=== PATIENT | female | born 1950 | race Two or more races ===

== ENCOUNTER 2020-10-25 13:21 | Outpatient (CLI) | payer OTHER | END 2020-10-25 13:33 | disposition home or self-care (01) | LOC: RAD 13:21 | DX: M20.11 Hallux valgus (acquired), right foot (principal) ==

== ENCOUNTER 2023-10-13 14:01 | Emergency (ER) | payer OTHER ==
[~2023-10-13] VITALS: Ht 165.1 cm; Wt 63.5 kg
[2023-10-13] MEDS ORDERED: LEVOTHYROXINE75 MCG (14:12)
[2023-10-13] MEDS ORDERED: PREDNISONE5 M1 (14:12)
[2023-10-13] MEDS ORDERED: ELIQUIS5 MG (14:13)
[2023-10-13] MEDS ORDERED: XANAX XR0.5 MG (14:13)
[2023-10-13] MEDS ORDERED: TOPROL XL25 M1 (14:13)
[2023-10-13] MEDS ORDERED: PROZAC40 MG (14:13)
[2023-10-13] MEDS ORDERED: LIPITOR20 MG (14:13)
[2023-10-13] MEDS ORDERED: LACTOBACILLUS ACIDOPHILUS 1 CAP CAP PO ONE ×2 (15:15→15:22)
[2023-10-13] MEDS ORDERED: 0.9 % SODIUM CHLORIDE 500 ML IV ONE (15:15)
[2023-10-13 15:35] LABS: HEMATOCRIT 41.4 % (36.0-45.00); HEMOGLOBIN 14.2 g/dL (12.0-15.00); MEAN CELL VOLUME 93.5 fL (80.00-100.00); MEAN CORPUSCULAR HEMOGLOBIN 32.1 pg (27.00-32.0); MEAN CORPUSCULAR HGB CONC 34.3 g/dl (32.0-36.0); PLATELET COUNT 281 K/uL (150-450); RED BLOOD COUNT 4.43 M/uL (4.00-6.00)
[2023-10-13 16:10] LABS: ALBUMIN 3.6 gm/dL (3.4-5.0); BILIRUBIN TOTAL 0.44 mg/dL (0.3-1.2); CALCIUM 8.8 mg/dL (8.5-10.1); CREATININE SERUM 1.02 mg/dL (0.55-1.02); GFR 52.83; GLOBULINA 3.5 G/DL (2.4-3.5); POTASSIUM 4.69 mEq/L (3.5-5.1); TOTAL PROTEIN 7.1 gm/dL (6.4-8.2)
[2023-10-13 16:30] LABS: URINE APPEARANCE Clear; URINE BILIRRUBIN Negative (NEGATIVE); URINE BLOOD Moderate; URINE COLOR Yellow; URINE EPITHELIAL CELLS 2.4 uL (0.0-38.8); URINE GLUCOSE Negative (NEGATIVE); URINE KETONE Negative (NEGATIVE); URINE LEUKOCYTE Negative; URINE NITRATE Negative; URINE PROTEIN Negative (NEGATIVE); URINE RBC 71.9 uL (0.0-20.8); URINE UROBILINOGEN 0.2 E.U./dl
[2023-10-13 16:32] LABS: URINE BACTERIA 3.7 uL (0.0-1933); URINE CAST 0.15 uL (0.0-1.40)
== END 2023-10-13 21:27 ==
LOC: ER 14:03
PROVIDERS: Nurse Practitioner Family
DX: R30.0 Dysuria (principal); K42.9 Umbilical hernia without obstruction or gangrene; I70.8 Atherosclerosis of other arteries; R19.09 Other intra-abdominal and pelvic swelling, mass and lump; I10 Essential (primary) hypertension
CPT/HCPCS: 36415; 74176; 96365; 99283; J3490

== ENCOUNTER 2024-02-06 07:37 | Emergency (ER) | payer OTHER ==
[~2024-02-06] VITALS: Ht 160 cm; Wt 67.1 kg
[~2024-02-06 07:37] MED LIST: ELIQUIS5 MG; LEVOTHYROXINE75 MCG; LIPITOR20 MG; PREDNISONE5 M1; PROZAC40 MG; TOPROL XL25 M1; XANAX XR0.5 MG
[2024-02-06 07:52] VITALS: BP 139/76; O2SAT 94
[2024-02-06] MEDS ORDERED: DEXAMETHASONE SODIUM PHOSPHATE 4 MG/ML VIAL IM STA (08:24)
[2024-02-06] MEDS ORDERED: BUDESONIDE 0.5 MG/2 ML AMPUL.NEB IH STA (08:25)
[2024-02-06] MEDS ORDERED: 0.9 % SODIUM CHLORIDE 1,000 ML IV STA (08:27)
[2024-02-06] MEDS ORDERED: ACETAMINOPHEN 500 MG GEL..CAP PO STA (08:28)
[2024-02-06 09:21] LABS: HEMATOCRIT 37.5 % (36.0-45.00); HEMOGLOBIN 12.6 g/dL (12.0-15.00); MEAN CELL VOLUME 94.4 fL (80.00-100.00); MEAN CORPUSCULAR HEMOGLOBIN 31.8 pg (27.00-32.0); MEAN CORPUSCULAR HGB CONC 33.7 g/dl (32.0-36.0); PLATELET COUNT 180 K/uL (150-450); RED BLOOD COUNT 3.98 M/uL (4.00-6.00); RED CELL DISTRIBUTION WIDTH 13.7 % (11.5-14.5)
[2024-02-06 09:36] LABS: ALBUMIN 3.3 gm/dL (3.4-5.0); BILIRUBIN TOTAL 1.2 mg/dL (0.3-1.2); BILIRUBIN,CONJUGATED 0.4 mg/dL (0.0-0.2); BILIRUBIN,UNCONJUGATED 0.8 mg/dL (0.0-0.6); CALCIUM 7.9 mg/dL (8.5-10.1); CREATININE SERUM 0.83 mg/dL (0.55-1.02); GFR 66.84; POTASSIUM 3.51 mEq/L (3.5-5.1); TOTAL PROTEIN 6.1 gm/dL (6.4-8.2)
[2024-02-06 09:53] LABS: PH,URINE 6.5 (5.0-8.0); URINE APPEARANCE Clear; URINE BILIRRUBIN Negative (NEGATIVE); URINE BLOOD Large; URINE COLOR Yellow; URINE GLUCOSE Negative (NEGATIVE); URINE KETONE 15 (NEGATIVE); URINE LEUKOCYTE Small; URINE NITRATE Negative; URINE PROTEIN Negative (NEGATIVE)
[2024-02-06 09:57] LABS: URINE BACTERIA 30.5 uL (0.0-1933); URINE EPITHELIAL CELLS 6.8 uL (0.0-38.8); URINE RBC 363.8 uL (0.0-20.8); URINE WBC 29.4 uL (0.0-23.2)
[2024-02-06 10:01] LABS: URINE CAST 0.29 uL (0.0-1.40)
== END 2024-02-06 12:34 | disposition home or self-care (01) ==
LOC: ER 07:40
PROVIDERS: General Practice
DX: J10.1 Influenza due to other identified influenza virus with other respiratory manifestations (principal); I10 Essential (primary) hypertension; E03.9 Hypothyroidism, unspecified; Z20.822 Contact with and (suspected) exposure to COVID-19; J45.909 Unspecified asthma, uncomplicated

== ENCOUNTER 2024-02-08 04:30 | Emergency (ER) | payer OTHER ==
[~2024-02-08] VITALS: Ht 160 cm; Wt 67.1 kg
[2024-02-08 04:43] VITALS: BP 145/84; O2SAT 95
[2024-02-08] MEDS ORDERED: METHYLPREDNISOLONE SOD SUCC 125 MG VIAL IV STA (07:37)
[2024-02-08] MEDS ORDERED: HYDROCODONE/CHLORPHEN P-STIREX 5 ML ML PO STA (07:38)
[2024-02-08] MEDS ORDERED: IPRATROPIUM/ALBUTEROL SULFATE 3 ML AMPUL.NEB IH STA (07:38)
[2024-02-08] MEDS ORDERED: METHYLPREDNISOLONE SOD SUCC 125 MG VIAL ONE (07:55)
[2024-02-08 09:18] LABS: HEMATOCRIT 35.7 % (36.0-45.00); MEAN CELL VOLUME 94.3 fL (80.00-100.00); MEAN CORPUSCULAR HEMOGLOBIN 31.6 pg (27.00-32.0); MEAN CORPUSCULAR HGB CONC 33.5 g/dl (32.0-36.0); PLATELET COUNT 206 K/uL (150-450); RED BLOOD COUNT 3.79 M/uL (4.00-6.00); RED CELL DISTRIBUTION WIDTH 13.6 % (11.5-14.5)
== END 2024-02-08 10:07 | disposition home or self-care (01) ==
LOC: ER 04:33
PROVIDERS: General Practice
DX: J10.1 Influenza due to other identified influenza virus with other respiratory manifestations (principal); I10 Essential (primary) hypertension
CPT/HCPCS: 36415; 94640; 96360; 99282; J3490

== ENCOUNTER 2024-09-25 10:17 | Outpatient (CLI) | payer OTHER | END 2024-09-25 10:18 | disposition home or self-care (01) | LOC: NUCLEAR 10:17 | PROVIDERS: ATTEND Internal Medicine | DX: I50.30 Unspecified diastolic (congestive) heart failure (principal); I10 Essential (primary) hypertension ==

== ENCOUNTER 2024-11-18 08:41 | Inpatient (IN) | payer OTHER ==
[~2024-11-18] VITALS: Ht 165.1 cm; Wt 70.3 kg
[~2024-11-18 08:41] MED LIST changes: +PREDNISONE 5MG
[2024-11-18] MEDS ORDERED: XANAX XR0.5 MG PO (09:03)
[2024-11-18] MEDS ORDERED: MILLIPRED DP5 M1 PO (09:04)
[2024-11-18] MEDS ORDERED: LIPITOR20 MG PO (09:04)
[2024-11-18] MEDS ORDERED: TOPROL XL50 M1 PO (09:05)
--- NOTE | 2024-11-18 09:20 | NUR ---
SE RECIBE PACIENTE ALERTA Y ORIENTADO X3 QUIEN REFIERE PRESENTAR DIFICULTAD RESPIRATORIA DESDE GREGORY. SE PROCEDE A BRODERICK S/V Y SE LE REALIZA EKG. BETY ES EVALUADO POR EL DR PAREDES QUIEN INDICA ACOSTAR A LA PTE EN RADHA 12 CON C/N A 3L/MIN. SE PROCEDE A ACOSTAR A PTE EN RADHA 12 CON BARANDAS ELEVADAS Y NIVEL MAS BAJO DE LA MISMA. SE COLOCA C/N JESSIE ORDEN MEDICA VERBAL.
[2024-11-18] MEDS ORDERED: METHYLPREDNISOLONE SOD SUCC 125 MG VIAL IV STA (10:09)
[2024-11-18] MEDS ORDERED: METHYLPREDNISOLONE SOD SUCC 125 MG VIAL ONE (10:11)
[2024-11-18] MEDS ORDERED: CEFTRIAXONE SODIUM 1,000 MG VIAL ONE (10:11)
[2024-11-18] MEDS ORDERED: CEFTRIAXONE SODIUM 1,000 MG VIAL IV ONE (10:15)
[2024-11-18] MEDS ORDERED: LEVALBUTEROL HCL 1.25 MG/3 ML SOLUTION IH SCH (10:15)
[2024-11-18] MEDS ORDERED: MAGNESIUM SULFATE/D5W 1GM/100ML PIGGYBAG IV ONE (10:15)
[2024-11-18] MEDS ORDERED: IPRATROPIUM BROMIDE 0.5 MG/2.5 ML AMPUL.NEB IH SCH (10:15)
[2024-11-18] MEDS ORDERED: IPRATROPIUM BROMIDE 0.5 MG/2.5 ML AMPUL.NEB IH ONE (10:33)
[2024-11-18] MEDS ORDERED: LEVALBUTEROL HCL 1.25 MG/3 ML SOLUTION IH ONE (10:33)
--- NOTE | 2024-11-18 10:39 | NUR ---
SE ORIENTA PTE SOBRE TX MEDICO Y LA MISMA REFIERE ENTENDER Y ACEPTAR. SE CANALIZA Y SE COLECTAN MUESTRAS DE LAB, SE ADMINISTRA MED JESSIE ORDEN MEDICA Y PTE NO PRESENTA REACCION. SE NOTIFICA ABG Y TERAPIAS A PERSONAL DE TURNO (MINERVA).
[2024-11-18 10:47] LABS: BASO % 0.4 % (0.1-1.2); EOS # 0.22 (0.04-0.54); EOS % 2.2 % (0.7-7.0); LYMPH # 1.16 (1.18-3.74); LYMPH % 11.4 % (19.3-53.1); MEAN PLATELET VOLUME 9.70 fl (9.4-12.4); MONO # 1.15 (0.24-0.82); MONO % 11.3 % (4.7-12.5); NEUT # 7.56 (1.56-6.13); NEUT % 74.1 % (34.0-71.1); RED CELL DISTRIBUTION WIDTH 12.9 % (11.6-14.4)
[2024-11-18 11:01] LABS: ERYTHROCYTE SEDIMENTATION RATE 21 mm/hr (0-30)
[2024-11-18 11:11] LABS: BUN CREA RATIO 15.0 (7.0-25.0); CREATININE SERUM 0.93 mg/dL (0.55-1.02); GFR 58.61; GLUCOSE FASTING 98.0 mg/dL (65-100); OSMOLALITY SERUM 285.0 MOSM/KG (275-295)
[2024-11-18 11:14] LABS: COVID-19 AG NEGATIVE (NEGATIVE)
[2024-11-18 13:16] LABS: ABG PH 7.434 (7.35-7.45); BICARBONATE 28.1 mmol/l (23-25); o2 21 %
[2024-11-18 13:17] LABS: ABG PO2 58.7 mmHg (80-100)
[2024-11-18] MEDS ORDERED: ENOXAPARIN SODIUM 40 MG/0.4 ML SYRINGE SUBCUTANEO SCH ×2 (16:47→21:03)
[2024-11-18] MEDS ORDERED: METOPROLOL TARTRATE 50 MG TABLET PO SCH (16:50)
[2024-11-18] MEDS ORDERED: ATORVASTATIN CALCIUM 20 MG TABLET PO SCH (16:50)
[2024-11-18] MEDS ORDERED: OSELTAMIVIR PHOSPHATE 75 MG CAPSULE PO SCH (17:00)
[2024-11-18] MEDS ORDERED: 0.9 % SODIUM CHLORIDE 1,000 ML IV SCH (17:00)
[2024-11-18] MEDS ORDERED: ACETAMINOPHEN 325 MG TABLET PO PRN (17:00)
[2024-11-18] MEDS ORDERED: FLUOXETINE HCL 20 MG CAPSULE PO SCH (17:27)
[2024-11-18] MEDS ORDERED: BENZONATATE 100 MG CAPSULE PO PRN (17:30)
[2024-11-18] MEDS ORDERED: RIVAROXABAN 10 MG TAB PO SCH (17:32)
[2024-11-18] MEDS ORDERED: OSELTAMIVIR PHOSPHATE 75 MG CAPSULE PO ONE (17:48)
[2024-11-18] MEDS ORDERED: FAMOTIDINE/PF 20 MG in 0.9 % SODIUM CHLORIDE 8 ML IV PUSH SCH (18:11)
[2024-11-18] MEDS ORDERED: CEFTRIAXONE SODIUM 1,000 MG VIAL IV SCH (18:14)
[2024-11-18 18:54] LABS: URINE APPEARANCE Clear; URINE BILIRRUBIN Negative (NEGATIVE); URINE BLOOD Large; URINE COLOR Yellow; URINE KETONE Negative (NEGATIVE); URINE LEUKOCYTE Negative; URINE NITRATE Negative; URINE PROTEIN Negative (NEGATIVE); URINE UROBILINOGEN 0.2 E.U./dl
[2024-11-18 18:59] LABS: URINE BACTERIA 15.5 uL (0.0-1933); URINE EPITHELIAL CELLS 13.2 uL (0.0-38.8); URINE RBC 46.1 uL (0.0-20.8); URINE WBC 10.7 uL (0.0-23.2)
[2024-11-18 19:10] LABS: URINE CAST 0.00 uL (0.0-1.40); URINE GLUCOSE >=1000 MG/DL (NEGATIVE)
[2024-11-18 19:40] LABS: INR 1.07
[2024-11-18 22:35] VITALS: O2SAT 98
[2024-11-18 22:38] VITALS: BP 135/77; O2SAT 98
[2024-11-19] VITALS (8 sets, daily range): BP systolic 132–134; BP diastolic 71–79; O2SAT 89–99
[2024-11-19] MEDS ORDERED: LEVOTHYROXINE SODIUM 75 MCG TABLET PO SCH (06:00)
[2024-11-19 06:17] LABS: BASO % 0.1 % (0.1-1.2); EOS # 0.00 (0.04-0.54); EOS % 0.0 % (0.7-7.0); LYMPH # 0.74 (1.18-3.74); LYMPH % 7.0 % (19.3-53.1); MEAN PLATELET VOLUME 10.30 fl (9.4-12.4); MONO # 0.60 (0.24-0.82); MONO % 5.6 % (4.7-12.5); NEUT # 9.21 (1.56-6.13); NEUT % 86.6 % (34.0-71.1); RED CELL DISTRIBUTION WIDTH 12.5 % (11.6-14.4)
[2024-11-19] MEDS ORDERED: LEVALBUTEROL HCL 0.63 MG/3 ML SOLUTION IH SCH (09:06)
[2024-11-19] MEDS ORDERED: APIXABAN 5 MG TABLET PO SCH (09:16)
[2024-11-19] MEDS ORDERED: LEVALBUTEROL HCL 1.25 MG/3 ML SOLUTION IH ONE (09:20)
[2024-11-19] MEDS ORDERED: METHYLPREDNISOLONE SOD SUCC 40 MG VIAL IV SCH (09:20)
[2024-11-19] MEDS ORDERED: METHYLPREDNISOLONE SOD SUCC 40 MG VIAL ONE (11:47)
[2024-11-19] MEDS ORDERED: APIXABAN 5 MG TABLET PO NR (12:15)
[2024-11-19] MEDS ORDERED: LEVALBUTEROL HCL 0.63 MG/3 ML SOLUTION IH ONE (17:42)
[2024-11-19] MEDS ORDERED: METOPROLOL SUCCINATE 50 MG TAB.SR.24H PO SCH (21:00)
[2024-11-20] VITALS (9 sets, daily range): BP systolic 146–157; BP diastolic 82–84; O2SAT 94–99
[2024-11-20] MEDS ORDERED: LEVOTHYROXINE SODIUM 75 MCG TABLET PO SCH (06:00)
[2024-11-21] VITALS (9 sets, daily range): BP systolic 138–166; BP diastolic 75–94; O2SAT 97–100
[2024-11-21 06:23] LABS: BASO % 0.1 % (0.1-1.2); EOS # 0.00 (0.04-0.54); EOS % 0.0 % (0.7-7.0); LYMPH # 0.29 (1.18-3.74); LYMPH % 2.5 % (19.3-53.1); MEAN PLATELET VOLUME 10.30 fl (9.4-12.4); MONO # 0.39 (0.24-0.82); MONO % 3.4 % (4.7-12.5); NEUT # 10.53 (1.56-6.13); NEUT % 92.4 % (34.0-71.1); RED CELL DISTRIBUTION WIDTH 13.0 % (11.6-14.4)
[2024-11-21 06:58] LABS: ALT/SGPT 48.0 U/L (12-78); AST/SGOT 26.0 U/L (15-37); BILIRUBIN TOTAL 0.84 mg/dL (0.3-1.2); BUN CREA RATIO 19.0 (7.0-25.0); CREATININE SERUM 0.78 mg/dL (0.55-1.02); GFR 71.81; GLOBULINA 2.9 G/DL (2.4-3.5); GLUCOSE FASTING 135.0 mg/dL (65-100); OSMOLALITY SERUM 288.0 MOSM/KG (275-295)
[2024-11-21] MEDS ORDERED: CLONAZEPAM 0.5 MG TABLET PO SCH (09:00)
[2024-11-21] MEDS ORDERED: LEVALBUTEROL HCL 0.63 MG/3 ML SOLUTION IH SCH (09:00)
[2024-11-21] MEDS ORDERED: METHYLPREDNISOLONE SOD SUCC 40 MG VIAL IV SCH (09:00)
[2024-11-21] MEDS ORDERED: OSELTAMIVIR PHOSPHATE 75 MG CAPSULE PO NR (18:30)
[2024-11-22] VITALS (9 sets, daily range): BP systolic 145–160; BP diastolic 68–82; O2SAT 95–100
[2024-11-22] MEDS ORDERED: LEVOTHYROXINE SODIUM 50 MCG TABLET PO SCH (06:00)
[2024-11-22] MEDS ORDERED: OSELTAMIVIR PHOSPHATE 75 MG CAPSULE PO SCH (09:00)
[2024-11-23] VITALS (10 sets, daily range): BP systolic 118–180; BP diastolic 80–86; O2SAT 95–100
[2024-11-23 08:21] LABS: ALT/SGPT 44.0 U/L (12-78); AST/SGOT 15.0 U/L (15-37); BILIRUBIN TOTAL 1.06 mg/dL (0.3-1.2); BUN CREA RATIO 28.0 (7.0-25.0); CREATININE SERUM 0.78 mg/dL (0.55-1.02); GFR 71.81; GLOBULINA 3.0 G/DL (2.4-3.5); GLUCOSE FASTING 148.0 mg/dL (65-100); OSMOLALITY SERUM 291.0 MOSM/KG (275-295)
[2024-11-23 08:51] LABS: BASO % 0.1 % (0.1-1.2); EOS # 0.00 (0.04-0.54); EOS % 0.0 % (0.7-7.0); LYMPH # 0.54 (1.18-3.74); LYMPH % 5.7 % (19.3-53.1); MEAN PLATELET VOLUME 10.60 fl (9.4-12.4); MONO # 0.45 (0.24-0.82); MONO % 4.7 % (4.7-12.5); NEUT # 8.37 (1.56-6.13); NEUT % 87.8 % (34.0-71.1); RED CELL DISTRIBUTION WIDTH 12.6 % (11.6-14.4)
[2024-11-23] MEDS ORDERED: AMLODIPINE BESYLATE 5 MG TABLET PO STA (12:44)
[2024-11-24] VITALS (8 sets, daily range): BP systolic 125–145; BP diastolic 72–84; O2SAT 90–100
[2024-11-24] MEDS ORDERED: METHYLPREDNISOLONE SOD SUCC 40 MG VIAL IV SCH (09:00)
[2024-11-25] VITALS (8 sets, daily range): BP systolic 127–160; BP diastolic 68–95; O2SAT 95–100
[2024-11-25 13:17] LABS: BASO % 0.2 % (0.1-1.2); EOS # 0.15 (0.04-0.54); EOS % 1.2 % (0.7-7.0); LYMPH # 1.17 (1.18-3.74); LYMPH % 9.2 % (19.3-53.1); MEAN PLATELET VOLUME 9.90 fl (9.4-12.4); MONO # 1.41 (0.24-0.82); MONO % 11.1 % (4.7-12.5); NEUT # 9.56 (1.56-6.13); NEUT % 75.2 % (34.0-71.1); RED CELL DISTRIBUTION WIDTH 12.8 % (11.6-14.4)
[2024-11-25 14:25] LABS: ALT/SGPT 35.0 U/L (12-78); AST/SGOT 13.0 U/L (15-37); BILIRUBIN TOTAL 0.68 mg/dL (0.3-1.2); BUN CREA RATIO 24.0 (7.0-25.0); CREATININE SERUM 0.82 mg/dL (0.55-1.02); GFR 67.78; GLOBULINA 2.6 G/DL (2.4-3.5); GLUCOSE FASTING 93.0 mg/dL (65-100); OSMOLALITY SERUM 285.0 MOSM/KG (275-295)
[2024-11-26 01:21] VITALS: BP 143/90; O2SAT 97
[2024-11-26 01:22] VITALS: O2SAT 97
[2024-11-26 06:18] VITALS: O2SAT 96
[2024-11-26 07:25] VITALS: O2SAT 97
[2024-11-26] MEDS ORDERED: BREO ELLIPTA I1 EACH IH (07:37)
[2024-11-26] MEDS ORDERED: PREDNISONE 5 MG TABLET PO SCH (09:00)
[2024-11-26 09:44] VITALS: BP 140/86; O2SAT 97
== END 2024-11-26 11:03 | disposition home or self-care (01) | DRG 202 ==
LOC: MEDJ → ER 08:41 → MEDJ 17:07
PROVIDERS: General Practice; ADMIT Internal Medicine; ATTEND Internal Medicine
PROC: BB24ZZZ Computerized Tomography (CT Scan) of Bilateral Lungs (ICD-10-PCS; principal; 2024-11-18)
PROC: 4A12X4Z Monitoring of Cardiac Electrical Activity, External Approach (ICD-10-PCS; 2024-11-18)
PROC: 8E0ZXY6 Isolation (ICD-10-PCS; 2024-11-18)
PROC: B246ZZZ Ultrasonography of Right and Left Heart (ICD-10-PCS; 2024-11-19)
PROC: 3E0F7GC Introduction of Other Therapeutic Substance into Respiratory Tract, Via Natural or Artificial Opening (ICD-10-PCS; 2024-11-19)
DX: J45.901 Unspecified asthma with (acute) exacerbation (principal); I50.30 Unspecified diastolic (congestive) heart failure; J91.8 Pleural effusion in other conditions classified elsewhere; J10.1 Influenza due to other identified influenza virus with other respiratory manifestations; R09.02 Hypoxemia; I48.0 Paroxysmal atrial fibrillation; M06.9 Rheumatoid arthritis, unspecified; E03.8 Other specified hypothyroidism; I11.0 Hypertensive heart disease with heart failure; F41.0 Panic disorder [episodic paroxysmal anxiety]; M35.00 Sjogren syndrome, unspecified

== ENCOUNTER → 2025-01-09 | Emergency (ER) | payer OTHER ==
[~2025-01-09] VITALS: Ht 165.1 cm; Wt 71.7 kg
[~2025-01-09] MED LIST changes: +BREO ELLIPTA I1 EACH IH; +IPRATROPIU0.2 MG/1 M IH; +IPRATROPIUM BROMIDE 0.5 MG/2.5 ML AMPUL.NEB IH ONE; +LEVALBUTEROL HCL 1.25 MG/3 ML SOLUTION IH ONE; +LIPITOR20 MG PO; +METHYLPREDNISOLONE SOD SUCC 125 MG VIAL IV ONE; +MILLIPRED DP5 M1 PO; +OSEL75CA PO; +OSELTAMIVIR PHOSPHATE 75 MG CAPSULE PO ONE; +PEPCID AC20 MG PO; +TOPROL XL50 M1 PO; +TUSSIN DM LIQU118 ML PO; +XANAX XR0.5 MG PO; +XOPENEX CO1.25 MG/0. IH; +ZITHROMAX500 MG PO
[2025-01-09 16:17] LABS: BASO % 0.5 % (0.1-1.2); EOS # 0.07 (0.04-0.54); EOS % 0.8 % (0.7-7.0); LYMPH # 1.43 (1.18-3.74); LYMPH % 15.5 % (19.3-53.1); MEAN PLATELET VOLUME 9.90 fl (9.4-12.4); MONO # 0.72 (0.24-0.82); MONO % 7.8 % (4.7-12.5); NEUT # 6.92 (1.56-6.13); NEUT % 74.9 % (34.0-71.1); RED CELL DISTRIBUTION WIDTH 13.2 % (11.6-14.4)
[2025-01-09 16:37] LABS: COVID-19 AG NEGATIVE (NEGATIVE)
[2025-01-09 16:44] LABS: INR 1.11
[2025-01-09 16:59] LABS: ALT/SGPT 35.0 U/L (12-78); AST/SGOT 28.0 U/L (15-37); BILIRUBIN TOTAL 0.55 mg/dL (0.3-1.2); BUN CREA RATIO 22.0 (7.0-25.0); CREATININE SERUM 1.11 mg/dL (0.55-1.02); GFR 47.66; GLOBULINA 2.9 G/DL (2.4-3.5); GLUCOSE FASTING 99.0 mg/dL (65-100); OSMOLALITY SERUM 287.0 MOSM/KG (275-295)
[2025-01-09 17:56] LABS: URINE APPEARANCE Clear; URINE BILIRRUBIN Negative (NEGATIVE); URINE BLOOD Large; URINE COLOR Yellow; URINE GLUCOSE Negative (NEGATIVE); URINE KETONE Negative (NEGATIVE); URINE LEUKOCYTE Trace; URINE NITRATE Negative; URINE PROTEIN Negative (NEGATIVE); URINE UROBILINOGEN 0.2 E.U./dl
[2025-01-09 18:00] LABS: URINE BACTERIA 13.1 uL (0.0-1933); URINE EPITHELIAL CELLS 8.4 uL (0.0-38.8); URINE RBC 37.9 uL (0.0-20.8); URINE WBC 20.1 uL (0.0-23.2)
[2025-01-09 18:11] LABS: URINE CAST 0.29 uL (0.0-1.40)
== END | disposition home or self-care (01) ==
LOC: ER 12:39
PROVIDERS: General Practice
DX: J10.1 Influenza due to other identified influenza virus with other respiratory manifestations (principal); J91.8 Pleural effusion in other conditions classified elsewhere; Z20.822 Contact with and (suspected) exposure to COVID-19; I10 Essential (primary) hypertension; E03.9 Hypothyroidism, unspecified; I50.9 Heart failure, unspecified; I48.91 Unspecified atrial fibrillation
CPT/HCPCS: 36415; 71046; 71250; 82803; 93005; 94640; 99284; J3490

== ENCOUNTER 2025-02-06 11:32 | Inpatient (IN) | payer OTHER ==
[~2025-02-06] VITALS: Ht 165.1 cm; Wt 71.7 kg
[~2025-02-06 11:32] MED LIST changes: -IPRATROPIUM BROMIDE 0.5 MG/2.5 ML AMPUL.NEB IH ONE; -LEVALBUTEROL HCL 1.25 MG/3 ML SOLUTION IH ONE; -METHYLPREDNISOLONE SOD SUCC 125 MG VIAL IV ONE; -OSELTAMIVIR PHOSPHATE 75 MG CAPSULE PO ONE
--- NOTE | 2025-02-06 13:02 | NUR ---
SE RECIBE PACIENTE ALERTA Y CONCIENTE X3. LA MISMA REFIERE TENER DIFICULTAD RESPORATORIA DESDE HOY. SE PROCEDE A BRODERICK S/V A LA PACIENTE Y SE REALIZAR EKG. BETY EVALUADO POR CHENTE ALBARRAN QUIEN INDICA UBICAR LA PACIENTE EN FT. SE PROCEDE A UBICAR LA MISMA.
[2025-02-06] MEDS ORDERED: LEVALBUTEROL HCL 1.25 MG/3 ML SOLUTION IH ONE ×2 (13:30→16:30)
--- NOTE | 2025-02-06 13:41 | NUR ---
SE ORIENTA A PTE SOBRE TX MEDICO ORDENADO POR . SE REALIZA JAVAN DE MUESTRAS DE LAB JESSIE ORDEN MEDICA Y BAJO MEDIDAS ASPTICAS. SE NOTIFICA ESTUDIO ORDENADO.
[2025-02-06 14:00] LABS: BASO % 0.4 % (0.1-1.2); EOS # 0.03 (0.04-0.54); EOS % 0.3 % (0.7-7.0); LYMPH # 1.04 (1.18-3.74); LYMPH % 11.7 % (19.3-53.1); MEAN PLATELET VOLUME 9.80 fl (9.4-12.4); MONO # 0.93 (0.24-0.82); MONO % 10.4 % (4.7-12.5); NEUT # 6.83 (1.56-6.13); NEUT % 76.6 % (34.0-71.1); RED CELL DISTRIBUTION WIDTH 13.3 % (11.6-14.4)
[2025-02-06 14:37] LABS: ALT/SGPT 31.0 U/L (12-78); AST/SGOT 20.0 U/L (15-37); BILIRUBIN TOTAL 1.13 mg/dL (0.3-1.2); BUN CREA RATIO 21.0 (7.0-25.0); COVID-19 AG NEGATIVE (NEGATIVE); CREATININE SERUM 1.09 mg/dL (0.55-1.02); GFR 48.67; GLOBULINA 2.9 G/DL (2.4-3.5); GLUCOSE FASTING 108.0 mg/dL (65-100); OSMOLALITY SERUM 285.0 MOSM/KG (275-295)
[2025-02-06 14:41] LABS: INR 1.05
[2025-02-06] MEDS ORDERED: FAMOTIDINE/PF 20 MG in 0.9 % SODIUM CHLORIDE 8 ML IV PUSH SCH (16:25)
[2025-02-06] MEDS ORDERED: IPRATROPIUM BROMIDE 0.5 MG/2.5 ML AMPUL.NEB IH ONE (16:30)
[2025-02-06] MEDS ORDERED: ACETAMINOPHEN 500 MG GEL..CAP PO PRN (16:30)
[2025-02-06] MEDS ORDERED: DOXYCYCLINE HYCLATE 100MG IV ONE (16:30)
[2025-02-06] MEDS ORDERED: METHYLPREDNISOLONE SOD SUCC 125 MG VIAL IV ONE (16:30)
[2025-02-06] MEDS ORDERED: CEFTRIAXONE SODIUM 2,000 MG in 0.9 % SODIUM CHLORIDE 100 ML IV ONE (16:30)
[2025-02-06] MEDS ORDERED: OSELTAMIVIR PHOSPHATE 75 MG CAPSULE PO SCH (17:00)
[2025-02-06] MEDS ORDERED: APIXABAN 5 MG TABLET PO SCH (17:00)
[2025-02-06 17:47] VITALS: BP 130/80
[2025-02-06 22:53] VITALS: BP 130/75; O2SAT 96
[2025-02-07] MEDS ORDERED: IPRATROPIUM BROMIDE 0.5 MG/2.5 ML AMPUL.NEB IH SCH (01:00)
[2025-02-07 02:27] VITALS: BP 123/74; O2SAT 95
[2025-02-07] MEDS ORDERED: DOXYCYCLINE HYCLATE 100MG IV SCH (05:00)
[2025-02-07] MEDS ORDERED: LEVOTHYROXINE SODIUM 75 MCG TABLET PO SCH (06:00)
[2025-02-07] MEDS ORDERED: PREDNISONE 5 MG TABLET PO SCH (09:00)
[2025-02-07] MEDS ORDERED: ATORVASTATIN CALCIUM 20 MG TABLET PO SCH (09:00)
[2025-02-07] MEDS ORDERED: CEFTRIAXONE SODIUM 2,000 MG in 0.9 % SODIUM CHLORIDE 100 ML IV SCH (09:00)
[2025-02-07 09:27] VITALS: BP 149/79; O2SAT 94
[2025-02-07] MEDS ORDERED: LEVALBUTEROL HCL 1.25 MG/3 ML SOLUTION IH SCH (17:00)
[2025-02-07 19:13] VITALS: BP 157/84
[2025-02-07 22:17] VITALS: O2SAT 95
[2025-02-08] VITALS (9 sets, daily range): BP systolic 125–147; BP diastolic 73–80; O2SAT 90–100
[2025-02-08 08:07] LABS: BASO % 0.2 % (0.1-1.2); EOS # 0.01 (0.04-0.54); EOS % 0.1 % (0.7-7.0); LYMPH # 1.19 (1.18-3.74); LYMPH % 9.9 % (19.3-53.1); MEAN PLATELET VOLUME 10.30 fl (9.4-12.4); MONO # 1.22 (0.24-0.82); MONO % 10.1 % (4.7-12.5); NEUT # 9.58 (1.56-6.13); NEUT % 79.2 % (34.0-71.1); RED CELL DISTRIBUTION WIDTH 13.3 % (11.6-14.4)
[2025-02-08 08:30] LABS: ALT/SGPT 23.0 U/L (12-78); AST/SGOT 11.0 U/L (15-37); BILIRUBIN TOTAL 0.62 mg/dL (0.3-1.2); BUN CREA RATIO 27.0 (7.0-25.0); CREATININE SERUM 1.3 mg/dL (0.55-1.02); GFR 39.72; GLOBULINA 2.8 G/DL (2.4-3.5); GLUCOSE FASTING 95.0 mg/dL (65-100); LDH 184.0 U/L (84-246); OSMOLALITY SERUM 289.0 MOSM/KG (275-295)
[2025-02-09] VITALS (7 sets, daily range): BP systolic 111–123; BP diastolic 74–81; O2SAT 90–100
[2025-02-09] MEDS ORDERED: INTESTINEX680 M1 PO (15:40)
[2025-02-09] MEDS ORDERED: MONDOXYNE NL100 MG PO (15:40)
== END 2025-02-09 17:25 | disposition home or self-care (01) | DRG 186 ==
LOC: ER 11:32 → SEC-K 18:09 → MEDJ 19:07
PROVIDERS: General Practice; Internal Medicine Infectious Disease; ADMIT Internal Medicine; ATTEND Internal Medicine
PROC: BB24ZZZ Computerized Tomography (CT Scan) of Bilateral Lungs (ICD-10-PCS; principal; 2025-02-06)
PROC: B246ZZZ Ultrasonography of Right and Left Heart (ICD-10-PCS; 2025-02-06)
PROC: 4A033R1 Measurement of Arterial Saturation, Peripheral, Percutaneous Approach (ICD-10-PCS; 2025-02-06)
PROC: 4A12X4Z Monitoring of Cardiac Electrical Activity, External Approach (ICD-10-PCS; 2025-02-07)
PROC: 3E0F7GC Introduction of Other Therapeutic Substance into Respiratory Tract, Via Natural or Artificial Opening (ICD-10-PCS; 2025-02-07)
PROC: 8E0ZXY6 Isolation (ICD-10-PCS; 2025-02-07)
DX: J90 Pleural effusion, not elsewhere classified (principal); I50.31 Acute diastolic (congestive) heart failure; J11.00 Influenza due to unidentified influenza virus with unspecified type of pneumonia; J15.7 Pneumonia due to Mycoplasma pneumoniae; D84.821 Immunodeficiency due to drugs; Z79.52 Long term (current) use of systemic steroids; I50.9 Heart failure, unspecified; T38.0X5A Adverse effect of glucocorticoids and synthetic analogues, initial encounter; M65.90 Unspecified synovitis and tenosynovitis, unspecified site; F41.9 Anxiety disorder, unspecified; I48.0 Paroxysmal atrial fibrillation; M06.9 Rheumatoid arthritis, unspecified; H04.123 Dry eye syndrome of bilateral lacrimal glands